=== PATIENT | male | born 1945 | race Caucasian/White ===

== ENCOUNTER 2022-01-15 19:25 | Observation (INO) | payer OTHER ==
[~2022-01-15] VITALS: Ht 193 cm; Wt 90.0 kg
[2022-01-15] VITALS (16 sets, daily range): BP systolic 143–201; BP diastolic 63–98
[2022-01-15 20:48] LABS: HEMOGLOBIN 13.7 g/dl (14.0-18.0); IMMATURE GRANULOCYTES 0.1 % (0.0-5.0); MEAN CELL VOLUME 92.7 fL CALC (80.0-100.0); MEAN CORPUSCULAR HGB 30.2 pG CALC (26.0-32.0); MEAN CORPUSCULAR HGB CONC 32.6 g/dL CAL (32.0-36.0); NEUT# 4.42 thou/uL (1.82-7.42); RED BLOOD COUNT 4.53 mill/uL (4.70-6.10); RED CELL DISTRI WIDTH 12.4 % (11.5-15.5)
[2022-01-15 21:09] LABS: ALBUMIN 4.5 g/dL (3.2-5.0); ALKALINE PHOSPHATASE 78 u/l (38-126); ANION GAP 13 (6-22 (CALC)); BILIRUBIN, TOTAL 0.4 mg/dL (0.0-1.4); BUN 23 mg/dL (8-23); BUN/CREATININE RATIO 24 (12-20 (CALC)); CARBON DIOXIDE 26 mmol/l (22-30); CHLORIDE 102 mmol/l (95-108); GFR FOR AFR.AMER. > 60 ML/MIN (>=60 (CALC)); GFR OTHER RACES > 60 ML/MIN (>=60 (CALC)); SGOT/AST 31 u/l (19-48); SODIUM 137 mmol/l (137-146); TOTAL PROTEIN 7.4 g/dL (6.3-8.2)
[2022-01-15 21:21] LABS: MYOGLOBIN 37 ng/mL (0 - 121)
[2022-01-15 21:55] LABS: URINE BILIRUBIN - DIPSTICK NEGATIVE (NEGATIVE); URINE BLOOD DIPSTICK NEGATIVE (NEGATIVE); URINE COLOR YELLOW; URINE GLUCOSE - DIPSTICK NEGATIVE (NEGATIVE); URINE KETONE NEGATIVE (NEGATIVE); URINE LEUK ESTERASE NEGATIVE (NEGATIVE); URINE PROTEIN - DIPSTICK NEGATIVE (NEG-TRACE); URINE SPECIFIC GRAVITY 1.025; URINE UROBILINOGEN - DIPSTICK 0.2 E.U./dL (0.2)
[2022-01-15 22:01] LABS: URINE NITRITE - DIPSTICK NEGATIVE (Negative)
[2022-01-16] VITALS (22 sets, daily range): BP systolic 113–199; BP diastolic 51–96
[2022-01-16] MEDS ORDERED: ASPIRIN81 MG PO (08:57)
[2022-01-16] MEDS ORDERED: ROSUVASTATIN CA10 MG PO (08:59)
[2022-01-16] MEDS ORDERED: METOPROL TAR25 MG PO (09:00)
[2022-01-16] MEDS ORDERED: METFORMIN HCL1000 MG PO (09:00)
[2022-01-16] MEDS ORDERED: INSULIN GLAR100 UNIT SC (09:01)
[2022-01-17] VITALS: BP 136/72
[2022-01-17 04:00] VITALS: BP 138/73
[2022-01-17 06:08] VITALS: BP 113/62
[2022-01-17 06:30] LABS: HEMATOCRIT 39.4 % (39.0-50.0); HEMOGLOBIN 13.6 g/dl (14.0-18.0); MEAN CELL VOLUME 88.9 fL CALC (80.0-100.0); MEAN CORPUSCULAR HGB 30.7 pG CALC (26.0-32.0); MEAN CORPUSCULAR HGB CONC 34.5 g/dL CAL (32.0-36.0); NEUT# 3.26 thou/uL (1.82-7.42); RED BLOOD COUNT 4.43 mill/uL (4.70-6.10); RED CELL DISTRI WIDTH 12.2 % (11.5-15.5)
[2022-01-17 06:48] LABS: PROTHROMBIN TIME 10.4 SECONDS (9.0-12.5)
[2022-01-17 06:52] LABS: ANION GAP 12 (6-22 (CALC)); BUN 22 mg/dL (8-23); BUN/CREATININE RATIO 23 (12-20 (CALC)); CARBON DIOXIDE 28 mmol/l (22-30); CHLORIDE 104 mmol/l (95-108); GFR FOR AFR.AMER. > 60 ML/MIN (>=60 (CALC)); GFR OTHER RACES > 60 ML/MIN (>=60 (CALC)); MAGNESIUM 2.1 mg/dL (1.6-2.3); POTASSIUM 4.2 mmol/l (3.5-5.1); SODIUM 139 mmol/l (137-146)
[2022-01-17 07:35] VITALS: BP 118/68
[2022-01-17 10:19] VITALS: BP 141/63
[2022-01-17] MEDS ORDERED: PLAVIX75 MG PO (12:31)
[2022-01-17] MEDS ORDERED: AMLODIPINE BESYL5 MG PO (12:31)
[2022-01-17] MEDS ORDERED: LIPITOR80 M1 PO (12:32)
[2022-01-18] MEDS ORDERED: LIPITOR80 M1 PO (11:23)
== END 2022-01-17 13:58 | disposition home health service (06) | DRG 93 ==
LOC: ED 19:25 → ED-I 20:34 → ED 20:34 → ED-I 23:14 → ED 23:31 → MS2 23:32 → ICU 01-16 11:30 → MS2 01-16 21:26
PROVIDERS: Emergency Medicine; Nurse Practitioner; ADMIT Internal Medicine; ATTEND Internal Medicine
DX: R47.01 Aphasia (principal); R47.1 Dysarthria and anarthria; R48.2 Apraxia; H53.9 Unspecified visual disturbance; I65.21 Occlusion and stenosis of right carotid artery; I10 Essential (primary) hypertension; E11.40 Type 2 diabetes mellitus with diabetic neuropathy, unspecified; F03.90 Unspecified dementia, unspecified severity, without behavioral disturbance, psychotic disturbance, mood disturbance, and anxiety; E78.5 Hyperlipidemia, unspecified; Z95.1 Presence of aortocoronary bypass graft; Z79.84 Long term (current) use of oral hypoglycemic drugs; Z79.82 Long term (current) use of aspirin; Z79.4 Long term (current) use of insulin; Z20.822 Contact with and (suspected) exposure to COVID-19
CPT/HCPCS: Q9967